=== PATIENT | male | born 1980 | race Caucasian/White ===

== ENCOUNTER 2020-04-09 08:27 | Emergency (ER) | payer BC ==
[~2020-04-09] VITALS: Ht 177.8 cm; Wt 75.5 kg
[2020-04-09 08:33] VITALS: BP 154/99; TEMP 98.9
[2020-04-09 10:37] VITALS: PULSE 85
== END 2020-04-09 09:27 | disposition home or self-care (01) ==
LOC: COL.ER 08:27
DX: R10.9 Unspecified abdominal pain (principal); F17.210 Nicotine dependence, cigarettes, uncomplicated; Z20.828 Contact with and (suspected) exposure to other viral communicable diseases

== ENCOUNTER 2022-05-21 18:27 | Emergency (ER) | payer OTHER ==
[~2022-05-21] VITALS: Ht 177.8 cm; Wt 75.0 kg
[2022-05-21 18:59] VITALS: TEMP 98.2
[2022-05-21 20:55] VITALS: BP 166/91; PULSE 79
== END 2022-05-21 20:58 | disposition home or self-care (01) ==
LOC: COL.ER 18:27
DX: S13.4XXA Sprain of ligaments of cervical spine, initial encounter (principal); S50.812A Abrasion of left forearm, initial encounter; S09.90XA Unspecified injury of head, initial encounter; F17.200 Nicotine dependence, unspecified, uncomplicated; Z28.310 Unvaccinated for COVID-19; Z23 Encounter for immunization; V89.2XXA Person injured in unspecified motor-vehicle accident, traffic, initial encounter; Y92.410 Unspecified street and highway as the place of occurrence of the external cause